=== PATIENT | male | born 1955 | race Caucasian/White ===

== ENCOUNTER 2018-01-19 10:52 | Emergency (ER) | payer MEDICARE, OTHER ==
[~2018-01-19] VITALS: Ht 167.6 cm; Wt 78.0 kg
[2018-01-19] MEDS ORDERED: SODIUM CHLORIDE 0.9% 1,000 ML IV ONE (11:25)
[2018-01-19] MEDS ORDERED: METF500T5 PO (11:27)
[2018-01-19] MEDS ORDERED: GLIP10TA13 PO ×2 (11:27→11:30)
[2018-01-19] MEDS ORDERED: SITA100T PO (11:27)
[2018-01-19] MEDS ORDERED: OLME40TA12 PO (11:28)
[2018-01-19] MEDS ORDERED: FAMO20TA37 PO (11:28)
[2018-01-19] MEDS ORDERED: ATEN50TA41 PO (11:28)
[2018-01-19] MEDS ORDERED: ASPI-496 PO (11:29)
[2018-01-19] MEDS ORDERED: ESCI10TA PO (11:29)
[2018-01-19] MEDS ORDERED: ASPI-650 PO (11:29)
[2018-01-19] MEDS ORDERED: SODIUM CHLORIDE FLUSH 10ML SYR IVF ONE (11:30)
[2018-01-19] MEDS ORDERED: SODIUM CHLORIDE 0.9% 1,000ML IVBOLUS ONE (11:30)
[2018-01-19] MEDS ORDERED: KETOROLAC 30 MG/1 ML IVPush ONE (11:30)
[2018-01-19] MEDS ORDERED: AMLO10TA2 PO (11:32)
[2018-01-19] MEDS ORDERED: DONE10TA7 PO (11:33)
[2018-01-19] MEDS ORDERED: NIFE30TA13 PO (11:33)
[2018-01-19] MEDS ORDERED: LABE200T3 PO (11:33)
[2018-01-19] MEDS ORDERED: ATOR-2 PO (11:34)
[2018-01-19 12:00] LABS: BASOPHILS # (AUTO) 0.05 x10^3/uL (0-0.1); BASOPHILS % (AUTO) 1 % (0-1); EOSINOPHILS # (AUTO) 0.17 x10^3/uL (0-0.4); EOSINOPHILS % (AUTO) 3 % (1-7); LYMPHOCYTES # (AUTO) 1.48 x10^3/uL (1-3.4); LYMPHOCYTES % (AUTO) 24 % (22-44); MD NO; MEAN CORPUSCULAR HEMOGLOBIN 33.5 pg (27.5-34.5); MEAN CORPUSCULAR HGB CONC 34.4 g/dL (33.2-36.2); MEAN CORPUSCULAR VOLUME 97.3 fL (81-97); MEAN PLATELET VOLUME 8.2 fL (7.4-10.4); MONOCYTES # (AUTO) 0.62 x10^3/uL (0.2-0.8); MONOCYTES % (AUTO) 10 % (2-9); NEUTROPHILS # (AUTO) 3.96 x10^3/uL (1.8-6.8); NEUTROPHILS % (AUTO) 63 % (42-75); PLATELET COUNT 140 x10^3/uL (130-400); RED BLOOD COUNT 4.67 x10^6/uL (4.38-5.82); RED CELL DISTRIBUTION WIDTH 13.9 % (9.4-14.8)
[2018-01-19] MEDS ORDERED: KETOROLAC 30 MG/1 ML ONE (12:00)
[2018-01-19 12:09] LABS: ALBUMIN 3.9 g/dL (3.4-5.0); ANION GAP 7 mmol/L (5-15); CALCIUM 9.4 mg/dL (8.5-10.1); CHLORIDE 103 mmol/L (98-107)
[2018-01-19 12:14] LABS: ALANINE AMINOTRANSFERASE 32 U/L (12-78); ALKALINE PHOSPHATASE 89 U/L (45-117); BILIRUBIN,TOTAL 1.2 mg/dL (0.2-1.0); CREATININE 1.23 mg/dL (0.7-1.3); TOTAL PROTEIN 8.4 g/dL (6.4-8.2)
[2018-01-19] MEDS ORDERED: ONDANSETRON ODT 4 MG ONE (12:41)
[2018-01-19] MEDS ORDERED: MORPHINE SULFATE 4 MG/ML, 1ML ONE (12:41)
[2018-01-19 12:47] VITALS: BP 124/86
[2018-01-19] MEDS ORDERED: ONDANSETRON ODT 4 MG PO ONE (13:00)
[2018-01-19] MEDS ORDERED: MORPHINE SULFATE 4 MG/ML, 1ML IVPush PRN (13:00)
== END 2018-01-19 13:48 | disposition home or self-care (01) ==
LOC: ED 13:42
DX: R51 Headache (principal); J01.10 Acute frontal sinusitis, unspecified; J01.00 Acute maxillary sinusitis, unspecified; E11.65 Type 2 diabetes mellitus with hyperglycemia; I10 Essential (primary) hypertension
CPT/HCPCS: 36415; 71045; 80053; 85025; 93005; 96361; 96374; 96375; 99285; J1885; J7030; Q0162

== ENCOUNTER 2020-04-25 08:08 | Emergency (ER) | payer MEDICARE, MEDICAID ==
[~2020-04-25] VITALS: Ht 167.6 cm; Wt 72.4 kg
[~2020-04-25 08:08] MED LIST: AMIO200T42 PO; AMLO10TA8 PO; ASPI-496 PO; ASPI-650 PO; ASPI81TA45 PO; ATEN50TA41 PO; ATOR-2 PO; CARV12.52 PO; CLOP75TA PO; DONE10TA7 PO; ESCI10TA PO; FAMO20TA37 PO; GLIP10TA13 PO; LABE200T6 PO; METF500T17 PO; METO50TA82 PO; NIFE30TA13 PO; NIFE90TA8 PO; OLME1TAB84 PO; OLME40TA12 PO; OXYC5TAB3 PO; SITA100T PO; VALS80TA3 PO
--- NOTE | 2020-04-25 08:42 | NUR ---
first contact with pt. pt stated"i had heart sx about 1 month ago, since then i have cp everyday. my left arm and hand are going numb since in this morning." neuro/sensation intact. speech clear. no redness/swelling noted on incision site. pt's aox4. resps even and unlabored. pt denies any other sx. all monitors in place. call light within reach.
[2020-04-25] MEDS ORDERED: MORPHINE SULFATE 4 MG/ML, 1ML IVPush PRN (09:00)
[2020-04-25] MEDS ORDERED: ONDANSETRON 2MG/ML, 2ML ONE (09:13)
[2020-04-25] MEDS ORDERED: MORPHINE SULFATE 4 MG/ML, 1ML ONE (09:14)
[2020-04-25 09:16] LABS: BASOPHILS % (AUTO) 1 % (0-1); EOSINOPHILS % (AUTO) 4 % (1-7); LYMPHOCYTES % (AUTO) 28 % (22-44); MD NO; MEAN CORPUSCULAR HEMOGLOBIN 29.9 pg (27.5-34.5); MEAN CORPUSCULAR HGB CONC 32.7 g/dL (33.2-36.2); MEAN PLATELET VOLUME 7.6 fL (7.4-10.4); MONOCYTES % (AUTO) 8 % (2-9); NEUTROPHILS % (AUTO) 59 % (42-75); PLATELET COUNT 221 x10^3/uL (130-400); RED CELL DISTRIBUTION WIDTH 16.4 % (9.4-14.8)
[2020-04-25 09:25] LABS: ALANINE AMINOTRANSFERASE 22 U/L (12-78); ALBUMIN 3.9 g/dL (3.4-5.0); ANION GAP 8 mmol/L (5-15); CALCIUM 9.7 mg/dL (8.5-10.1); CHLORIDE 105 mmol/L (98-107); CREATININE 1.68 mg/dL (0.7-1.3)
[2020-04-25 09:27] LABS: ALKALINE PHOSPHATASE 119 U/L (45-117); BILIRUBIN,TOTAL 0.5 mg/dL (0.2-1.0); TOTAL PROTEIN 8.4 g/dL (6.4-8.2)
--- NOTE | 2020-04-25 09:36 | NUR ---
piv est on r hand with no complications. pt medicated per emar. pt tolerated well.
[2020-04-25] MEDS ORDERED: SODIUM CHLORIDE FLUSH 10ML SYR IVF ONE (10:00)
[2020-04-25] MEDS ORDERED: ONDANSETRON 2MG/ML, 2ML IVPush ONE (10:00)
--- NOTE | 2020-04-25 10:06 | NUR ---
PT STATED"I WANNA TALK TO IRINA BECAUSE I JUST MOVED HERE FROM [place] AND PHARMACY CAN'T GIVE ME MEDS." IRINA PAGED.
[2020-04-25 10:25] VITALS: BP 182/106
[2020-04-25] MEDS ORDERED: CLOPIDOGREL 75 MG TABLET PO SCH (10:30)
[2020-04-25] MEDS ORDERED: AMLODIPINE 10 MG TAB PO SCH (10:30)
[2020-04-25] MEDS ORDERED: CARVEDILOL 12.5 MG TABLET ONE (10:31)
[2020-04-25] MEDS ORDERED: AMLODIPINE 5 MG TABLET ONE (10:31)
[2020-04-25] MEDS ORDERED: CLOPIDOGREL 75 MG TABLET ONE (10:31)
--- NOTE | 2020-04-25 10:36 | NUR ---
PT MEDICATED PER EMAR. PT TOLERATED WELL.
--- NOTE | 2020-04-25 11:03 | NUR ---
TASK RN: REVIEWED DC INSTRUCTIONS WITH PT, PT REPORTS HE WANTS TO LEAVE NOW, REPEAT BP 196/120 PT STATES HE KNOWS HIS BP IS HIGH AND TAKES MEDS FOR HIGH BP.
[2020-04-25] MEDS ORDERED: CARVEDILOL 12.5 MG TABLET PO SCH (18:00)
== END 2020-04-25 11:07 | disposition home or self-care (01) ==
LOC: ED 09:46
DX: G56.02 Carpal tunnel syndrome, left upper limb (principal); R07.89 Other chest pain; R00.0 Tachycardia, unspecified; I10 Essential (primary) hypertension; E11.9 Type 2 diabetes mellitus without complications; F17.200 Nicotine dependence, unspecified, uncomplicated
CPT/HCPCS: 36415; 71045; 80053; 85025; 93005; 96374; 96375; 99285; J2270; J2405